=== PATIENT | female | born 1970 | race Caucasian/White ===

== ENCOUNTER 2020-11-20 19:50 | Emergency (ER) | payer BC, SELFPAY ==
--- NOTE | ~2020-11-20 | CT_ITS ---
EXAMINATION: CT ABDOMEN AND PELVIS WITHOUT CONTRAST CLINICAL INFORMATION: Left flank pain with question of stone COMPARISON: Renal ultrasound 12/30/2019 CT abdomen pelvis 12/27/2019 TECHNIQUE: Multidetector volumetric imaging was performed from the superior aspect of the liver through the pubic symphysis. Sagittal and coronal reformatted images were obtained on the technologist's workstation. This CT examination was performed using dose optimization techniques as appropriate, variously including the following: *Automated exposure control *Adjustment of mA and/or kV according to patient size (this includes techniques or standardized protocols for targeted exams where dose is matched to indication/reason for exam; i.e. extremities or head) *Use of iterative reconstruction technique DLP: 690 mGy-cm FINDINGS: LUNG BASES: The visualized lung bases are unremarkable. LIVER, GALLBLADDER, AND BILIARY TREE: The liver is normal in size, shape, and attenuation. No focal hepatic lesion or biliary ductal dilatation is present. Status post cholecystectomy PANCREAS: Unremarkable. SPLEEN: Unremarkable. ADRENAL GLANDS: Unremarkable. KIDNEYS AND URETERS: The kidneys are normal in size, shape, and attenuation. 2 intrarenal nonobstructing calculi are present on the right the largest measuring 3 mm and measuring 500 Hounsfield units. This stone is 11 cm from the posterior axillary line. On the left, there is a tiny 1 to 2 mm punctate calcification in the lower pole. Both ureters appear normal and dilated. No hydronephrosis. No renal masses. No perinephric stranding. BLADDER: Unremarkable. GASTROINTESTINAL TRACT: A small hiatal hernia is present. The small and large bowel are unremarkable. The appendix is unremarkable. ABDOMINAL WALL: No significant hernia is appreciated. LYMPH NODES: Normal. VASCULAR: Unremarkable. PELVIC VISCERA: A retroverted uterus is present. An abnormal adnexal mass is not present. No free fluid is seen. OSSEOUS STRUCTURES: Unremarkable. CT/CT abdomen pelvis wo con IMPRESSION: 1. Bilateral nonobstructing renal calculi, right greater than left. 2. A cause for the patient's left flank pain has not been found
[2020-11-20 20:52] VITALS: BP 117/69; PULSE 90; RESP 18; TEMP 36.4; O2SAT 99; BMI 33.8
--- NOTE | 2020-11-20 21:24 | ED.ABDPAIN ---
HPI - Abdominal Pain General Chief Complaint: Abdominal Pain Stated Complaint: Kidney Stones? Time Seen by Provider: 11/20/20 21:24 Source: patient Mode of arrival: ambulatory Limitations: no limitations History of Present Illness HPI narrative: Patient's history of kidney stone nonobstructive been having pain in the left side of abdomen for last 6 months off and on got worse in last 1 week specially for last 3 days associated with chills and dysuria now no hematuria no fever or chills + nausea, no vomiting or diarrhea no blood in the stool MD elicited complaint: abdominal pain and flank pain Related Data Previous Rx's Medication Instructions Recorded dicyclomine 20 mg tablet 20 mg PO TID #90 tab 06/18/20 escitalopram oxalate 20 mg tablet 30 mg PO DAILY #45 tab 06/18/20 trazodone 50 mg tablet 50 mg PO BEDTIME PRN #20 tab 06/18/20 fluocinonide 0.05 % topical cream 1 appl TOPICAL DAILY 10 Days #30 g 07/10/20 simvastatin 40 mg tablet 40 mg PO BEDTIME #90 tab 11/11/20 cyanocobalamin (vitamin B-12) 1,000 mcg SUBCUT Q4W 28 Days #1 ml 11/17/20 1,000 mcg/mL injection solution levofloxacin 500 mg PO DAILY 5 Days #5 tab 11/20/20 phenazopyridine [Pyridium] 200 mg PO TID PRN 2 Days #5 tab 11/20/20 Allergies Allergy/AdvReac Type Severity Reaction Status Date / Time sulfamethoxazole Allergy Severe PANCREATITI Verified 11/20/20 20:58 [From BACTRIM] S trimethoprim [From BACTRIM] Allergy Severe PANCREATITI Verified 11/20/20 20:58 S Sulfa (Sulfonamide Allergy Unknown may cause Verified 11/20/20 20:58 Antibiotics) pancreatititis Review of Systems Review of Systems Yes all other systems are reviewed and are negative Physical Exam Vital Signs: Vital Signs: Last Vital Signs Temp 97.5 F 11/20/20 20:52 Pulse 79 11/20/20 22:59 Resp 18 11/20/20 22:59 BP 123/70 11/20/20 22:59 Pulse Ox 98 11/20/20 22:59 Body Mass Index 33.8 Appearance: Alert. Oriented X3. No acute distress. Eyes: PERRLA, No Nystagmus ENT: Pharynx normal. Oral Mucosa moist Neck: Normal inspection. Neck supple. CVS: Normal heart rate and rhythm. Pulses normal. Respiratory: No respiratory distress. Equal air entry bilateral, no wheezing/rales/rhonchi Abdomen: Soft and nontender. Bowel sounds are present, no mass palpable, ++L CVA tenderness Skin: Skin warm and dry. Normal skin color. Normal skin turgor. Extremities: No lower extremity edema. No calf tenderness Neuro: Oriented X 3. No motor deficit. No sensory deficit.No cerebellar signs , cranial nerves II-XII intact MDM - Abdominal Pain Medical Records Attestation: I reviewed the patient's medical records. Lab Data Attestation: I reviewed the patient's lab results. Result diagrams: 11/20/20 21:37 11/20/20 21:37 Labs: Lab Results 11/20/20 11/20/20 11/20/20 Range/Units 21:37 21:37 21:37 WBC 12.1 H (4.8-10.8) X10*3/uL RBC 4.64 (4.20-5.50) X10*6/uL Hgb 11.7 L (12.0-16.0) g/dl Hct 35.9 L (37-47) % MCV 77.4 L (80-98) fL MCH 25.2 L (27.0-33.0) pg MCHC 32.6 (31.0-35.0) g/dl RDW 13.4 (11.0-16.0) % Plt Count 296 (160-400) X10*3/uL MPV 10.3 (9.4-12.3) fL Immature Gran % (Auto) 0.3 (0.0-0.4) % Neut % (Auto) 63.8 (45-73) % Lymph % (Auto) 28.9 (20-40) % [place] % (Auto) 5.5 (2-11) % Eos % (Auto) 1.3 (0-4) % Baso % (Auto) 0.2 (0-2) % Lymph # (Auto) 3.5 (1.2-4.9) X10*3/uL [place] # (Auto) 0.7 (0.1-1.2) X10*3/uL Eos # (Auto) 0.2 (0.0-0.4) X10*3/uL Baso # (Auto) 0.0 (0.0-0.2) X10*3/uL Abs Immat Gran (auto) 0.04 H (0.00-0.03) X10*3/uL Absolute Neuts (auto) 7.7 (2.0-8.3) X10*3/uL Absolute Nucleated RBC 0.000 (0.0-0.012) X10*3/uL Nucleated RBC % (auto) 0.0 (0.0-0.2) /100WBC Hold Blue Top SEE NOTE Sodium 138 (135-145) mmol/L Potassium 3.9 (3.3-5.1) mmol/L Chloride 105 (96-108) mmol/L Carbon Dioxide 25 (22-29) mmol/L Anion Gap 12 (12-20) BUN 15 (9-16) mg/dL Creatinine 1.05 (0.5-1.4) mg/dL Estim Creat Clear Calc 62.9 Estimated GFR 55 Random Glucose 109 (60-115) mg/dL Calcium 9.3 (8.4-10.2) mg/dL Urine Color Urine Appearance Urine pH (5.0-8.0) Ur Specific [place] (1.005-1.025) Urine Protein (NEG-TRACE) MG/DL Urine Glucose (UA) (NEG) MG/DL Urine Ketones (NEG) MG/DL Urine Blood (NEG) Urine Nitrite (NEG) Ur Leukocyte Esterase (NEG) Urine RBC (0) /HPF Urine WBC (0-4) /HPF Ur Squamous Epith Cells /LPF Urine Bacteria /LPF Urine Mucus /LPF Urine Test (NEGATIVE) 11/20/20 11/20/20 Range/Units 21:37 21:37 WBC (4.8-10.8) X10*3/uL RBC (4.20-5.50) X10*6/uL Hgb (12.0-16.0) g/dl Hct (37-47) % MCV (80-98) fL MCH (27.0-33.0) pg MCHC (31.0-35.0) g/dl RDW (11.0-16.0) % Plt Count (160-400) X10*3/uL MPV (9.4-12.3) fL Immature Gran % (Auto) (0.0-0.4) % Neut % (Auto) (45-73) % Lymph % (Auto) (20-40) % [place] % (Auto) (2-11) % Eos % (Auto) (0-4) % Baso % (Auto) (0-2) % Lymph # (Auto) (1.2-4.9) X10*3/uL [place] # (Auto) (0.1-1.2) X10*3/uL Eos # (Auto) (0.0-0.4) X10*3/uL Baso # (Auto) (0.0-0.2) X10*3/uL Abs Immat Gran (auto) (0.00-0.03) X10*3/uL Absolute Neuts (auto) (2.0-8.3) X10*3/uL Absolute Nucleated RBC (0.0-0.012) X10*3/uL Nucleated RBC % (auto) (0.0-0.2) /100WBC Hold Blue Top Sodium (135-145) mmol/L Potassium (3.3-5.1) mmol/L Chloride (96-108) mmol/L Carbon Dioxide (22-29) mmol/L Anion Gap (12-20) BUN (9-16) mg/dL Creatinine (0.5-1.4) mg/dL Estim Creat Clear Calc Estimated GFR Random Glucose (60-115) mg/dL Calcium (8.4-10.2) mg/dL Urine Color YELLOW Urine Appearance CLEAR Urine pH 7.0 (5.0-8.0) Ur Specific [place] 1.010 (1.005-1.025) Urine Protein NEG (NEG-TRACE) MG/DL Urine Glucose (UA) NEG (NEG) MG/DL Urine Ketones NEG (NEG) MG/DL Urine Blood 1+ H (NEG) Urine Nitrite NEG (NEG) Ur Leukocyte Esterase NEG (NEG) Urine RBC 1-4 (0) /HPF Urine WBC 5-9 H (0-4) /HPF Ur Squamous Epith Cells 2+ /LPF Urine Bacteria TRACE /LPF Urine Mucus 1+ /LPF Urine Test NEGATIVE (NEGATIVE) Imaging Data CT scan - abdomen: Radiologist's impression: rdering Physician: Vikram Barry MD Date of Service: 11/20/20 Procedure(s): CT abdomen pelvis wo con Accession Number(s): [id number] cc: Vikram Barry MD~ EXAMINATION: CT ABDOMEN AND PELVIS WITHOUT CONTRAST CLINICAL INFORMATION: Left flank pain with question of stone COMPARISON: Renal ultrasound 12/30/2019 CT abdomen pelvis 12/27/2019 TECHNIQUE: Multidetector volumetric imaging was performed from the superior aspect of the liver through the pubic symphysis. Sagittal and coronal reformatted images were obtained on the technologist's workstation. This CT examination was performed using dose optimization techniques as appropriate, variously including the following: *Automated exposure control *Adjustment of mA and/or kV according to patient size (this includes techniques or standardized protocols for targeted exams where dose is matched to indication/reason for exam; i.e. extremities or head) *Use of iterative reconstruction technique DLP: 690 mGy-cm FINDINGS: LUNG BASES: The visualized lung bases are unremarkable. LIVER, GALLBLADDER, AND BILIARY TREE: The liver is normal in size, shape, and attenuation. No focal hepatic lesion or biliary ductal dilatation is present. Status post cholecystectomy PANCREAS: Unremarkable. SPLEEN: Unremarkable. ADRENAL GLANDS: Unremarkable. KIDNEYS AND URETERS: The kidneys are normal in size, shape, and attenuation. 2 intrarenal nonobstructing calculi are present on the right the largest measuring 3 mm and measuring 500 Hounsfield units. This stone is 11 cm from the posterior axillary line. On the left, there is a tiny 1 to 2 mm punctate calcification in the lower pole. Both ureters appear normal and dilated. No hydronephrosis. No renal masses. No perinephric stranding. BLADDER: Unremarkable. GASTROINTESTINAL TRACT: A small hiatal hernia is present. The small and large bowel are unremarkable. The appendix is unremarkable. ABDOMINAL WALL: No significant hernia is appreciated. LYMPH NODES: Normal. VASCULAR: Unremarkable. PELVIC VISCERA: A retroverted uterus is present. An abnormal adnexal mass is not present. No free fluid is seen. OSSEOUS STRUCTURES: Unremarkable. CT/CT abdomen pelvis wo con IMPRESSION: 1. Bilateral nonobstructing renal calculi, right greater than left. 2. A cause for the patient's left flank pain has not been found Discharge Plan Discharge Clinical Impression: UTI (urinary tract infection) Qualifiers: Urinary tract infection type: acute cystitis Hematuria presence: with hematuria Qualified Code(s): N30.01 - Acute cystitis with hematuria Patient Disposition: Home, Self-Care Instructions: Urinary Tract Infection in Women (ED) Additional Instructions: Drink plenty of fluids. Take antibiotic as prescribed. Report to the ER/PCP if not better Prescriptions: New levofloxacin 500 mg tablet 500 mg PO DAILY 5 Days Qty: 5 RF: 0 phenazopyridine [Pyridium] 200 mg tablet 200 mg PO TID PRN (Reason: pain) 2 Days Qty: 5 RF: 0 No Action fluocinonide 0.05 % cream 1 appl topical DAILY 10 Days Qty: 30 RF: 0 simvastatin 40 mg tablet 40 mg PO BEDTIME Qty: 90 RF: 0 cyanocobalamin (vitamin B-12) 1,000 mcg/mL solution 1,000 mcg subcut Q4W 28 Days Qty: 1 RF: 4 escitalopram oxalate 20 mg tablet 30 mg PO DAILY Qty: 45 RF: 1 trazodone 50 mg tablet 50 mg PO BEDTIME PRN (Reason: sleep) Qty: 20 RF: 0 dicyclomine 20 mg tablet 20 mg PO TID Qty: 90 RF: 0 PMFSH Past Medical History Medical History Anxiety disorder Depression with anxiety Dyslipidemia History of iron deficiency anemia Hyperparathyroidism Impaired fasting glucose Irritable bowel syndrome with diarrhea Vitamin B12 deficiency Surgical History No pertinent past surgical history Family History Family History Father Essential hypertension Mother Essential hypertension Social History Social History Alcohol intake: never Smoking Status: Never smoker Use of substances other than those prescribed or required for medical reasons: No Advance Directives: No Advance Directives Information Provided: No Patient : No
[2020-11-20] MEDS: Ketorolac Tromethamine 30 MG/ML VIAL IVPUSH (21:40)
[2020-11-20] MEDS: 0.9 % Sodium Chloride 1,000 ML 999 ML IVCONT (21:41)
[2020-11-20 21:42] LABS: MANUAL DIFF FLAG NO
[2020-11-20 21:48] LABS: Basophils Percent Auto 0.2 % (0-2); Eosinophils Absolute Auto 0.2 X10*3/uL (0.0-0.4); Eosinophils Percent Auto 1.3 % (0-4); Hematocrit 35.9 % (37-47); Hemoglobin 11.7 g/dl (12.0-16.0); Imm Gran Abs Auto 0.04 X10*3/uL (0.00-0.03); Imm Gran Pct Auto 0.3 % (0.0-0.4); Lymphocytes Absolute Auto 3.5 X10*3/uL (1.2-4.9); Lymphocytes Percent Auto 28.9 % (20-40); Mean Corpuscular HGB Conc 32.6 g/dl (31.0-35.0); Mean Corpuscular Hemoglobin 25.2 pg (27.0-33.0); Mean Corpuscular Volume 77.4 fL (80-98); Mean Platelet Volume 10.3 fL (9.4-12.3); Monocytes Absolute Auto 0.7 X10*3/uL (0.1-1.2); Monocytes Percent Auto 5.5 % (2-11); Neutrophils Absolute Auto 7.7 X10*3/uL (2.0-8.3); Neutrophils Percent Auto 63.8 % (45-73); Platelet Count 296 X10*3/uL (160-400); Red Blood Count 4.64 X10*6/uL (4.20-5.50); Red Cell Distribution Width 13.4 % (11.0-16.0); White Blood Count 12.1 X10*3/uL (4.8-10.8)
[2020-11-20 21:49] LABS: Glucose Urine UA NEG (NEG); Leukocyte Esterase Urine NEG (NEG); Nitrite Urine NEG (NEG); Urine Blood 1+ (NEG); Urine Ketones NEG (NEG); Urine Protein NEG (NEG-TRACE)
[2020-11-20 21:50] LABS: Appearance Urine CLEAR; Color Urine YELLOW
[2020-11-20 21:58] LABS: Bacteria Urine TRACE /LPF; Mucus Urine 1+ /LPF; Squamous Epithelial Cell Urine 2+ /LPF
[2020-11-20 21:59] LABS: UPreg QC Valid YES; Urine Pregnancy NEGATIVE (NEGATIVE)
[2020-11-20 22:12] LABS: Anion Gap 12 (12-20); Blood Urea Nitrogen 15 mg/dL (9-16); Calcium 9.3 mg/dL (8.4-10.2); Carbon Dioxide 25 mmol/L (22-29); Chloride 105 mmol/L (96-108); Creatinine Clr Calc Pharmacy 62.9; Estimated Glomerular Filt Rate 55; Glucose Random 109 mg/dL (60-115); Potassium 3.9 mmol/L (3.3-5.1); Sodium 138 mmol/L (135-145)
[2020-11-20 22:59] VITALS: BP 123/70; PULSE 79; RESP 18; O2SAT 98
[2020-11-20] MEDS: Phenazopyridine HCL 200 MG TABLET PO (23:17)
[2020-11-20] MEDS: levoFLOXacin 500 MG TABLET PO (23:17)
== END 2020-11-20 23:23 | disposition home or self-care (01) ==
PROVIDERS: Emergency Provider Internal Medicine; PCP Internal Medicine
DX: N30.01 Acute cystitis with hematuria (principal); N20.0 Calculus of kidney; Z87.442 Personal history of urinary calculi; E78.5 Hyperlipidemia, unspecified; Z79.02 Long term (current) use of antithrombotics/antiplatelets
CPT/HCPCS: 36415; 74176; 80048; 81001; 81025; 85025; 96361; 96374; 99284; 99285; J1885

== ENCOUNTER → 2020-12-24 14:10 | Outpatient (BNVA) | payer BC, SELFPAY | PROVIDERS: PCP Internal Medicine ==

== ENCOUNTER 2021-07-19 05:58 | Inpatient (IN) | payer BC, SELFPAY ==
--- NOTE | ~2021-07-19 | CT_ITS ---
EXAMINATION: CT ABDOMEN AND PELVIS WITH CONTRAST CLINICAL INFORMATION: Mid abdominal pain. COMPARISON: Multiple priors, most recent CT abdomen/pelvis dated 11/20/2020. TECHNIQUE: Multidetector volumetric images were obtained from the superior aspect of the liver through the pubic symphysis following administration 85 mL of Omnipaque 350 intravenous contrast. Sagittal and coronal reformatted images were obtained on the technologist's workstation. Oral contrast: No. This CT examination was performed using dose optimization techniques as appropriate, variously including the following: *Automated exposure control *Adjustment of mA and/or kV according to patient size (this includes techniques or standardized protocols for targeted exams where dose is matched to indication/reason for exam; i.e. extremities or head) *Use of iterative reconstruction technique DLP: 824 mGy-cm FINDINGS: LUNG BASES: The visualized lung bases are unremarkable. LIVER, GALLBLADDER, AND BILIARY TREE: The liver is normal in size, shape, and attenuation. No focal hepatic lesion or biliary ductal dilatation is present. Status post cholecystectomy. PANCREAS: Thickening and mild heterogeneity of the pancreatic parenchyma with prominent adjacent stranding/peripancreatic fluid. Findings are consistent with acute pancreatitis. No pancreatic ductal dilatation or discrete parenchymal lesion. No organized fluid collection or pseudocyst formation. SPLEEN: Unremarkable. The splenic artery and vein are patent. ADRENAL GLANDS: Unremarkable. KIDNEYS AND URETERS: The kidneys are normal in size, shape, and attenuation. Multiple bilateral nonobstructing renal stones are redemonstrated, increased in number when compared to the prior examination. The largest stone is within the lower pole of the right kidney measuring up to 0.7 cm and located 9.5 cm from the posterior axillary line. No ureteral stone. No hydronephrosis or hydroureter. BLADDER: Nondistended and unremarkable. GASTROINTESTINAL TRACT: No small or large bowel obstruction. No bowel wall thickening or associated inflammatory change. Unremarkable appendix. PERITONEAL CAVITY: Stranding/free fluid within the upper abdomen adjacent to the pancreas, as described above. Trace pelvic free fluid. No organized fluid collection/abscess formation. No intra-abdominal free air. ABDOMINAL WALL: No significant hernia is appreciated. LYMPH NODES: Normal. VASCULAR: Unremarkable. PELVIC VISCERA: The uterus and adnexa are unremarkable. OSSEOUS STRUCTURES: Unremarkable. CT/CT abdomen pelvis w con IMPRESSION: 1. Prominent peripancreatic stranding and free fluid, consistent with pancreatitis. The pancreas is slightly enlarged and heterogeneous without ductal dilatation or discrete parenchymal lesion. No evidence of pseudocyst or abscess formation. Trace associated free fluid within the pelvis. 2. Multiple bilateral nonobstructing renal stones, slightly increased in number when compared to the prior examination. No hydronephrosis or hydroureter. Fleischner guidelines were followed.
--- NOTE | ~2021-07-19 | XR_ITS ---
EXAMINATION: XR ABDOMEN KUB CLINICAL INDICATION: Abdominal pain COMPARISON: CT abdomen/pelvis dated 07/19/2021 TECHNIQUE: 2 views of the abdomen. FINDINGS: The bowel gas pattern is normal with no evidence of ileus or obstruction. Moderate stool present within the ascending colon. No unusual soft tissue calcifications are noted. The bones are unremarkable. XR/XR KUB IMPRESSION: Moderate stool within the ascending colon.
--- NOTE | ~2021-07-19 | CT_ITS ---
EXAMINATION: CT ANGIOGRAM OF THE CHEST WITH AND WITHOUT CONTRAST (CT PULMONARY ANGIOGRAM FOR PE) CLINICAL INFORMATION: Reason for Exam positive ddimer; COMPARISON: CT abdomen dated 07/19/2021 TECHNIQUE: Prior to contrast administration, noncontrast localization images were obtained. Subsequently, multidetector volumetric imaging was performed from the thoracic inlet to below the diaphragms following the administration of 65 mL Omnipaque 350 intravenous contrast. No contrast reaction reported Sagittal, coronal, and MIP oblique sagittal reformatted images were obtained on the CT workstation, uploaded to PACS, and reviewed. This CT examination was performed using dose optimization techniques as appropriate, variously including the following: *Automated exposure control *Adjustment of mA and/or kV according to patient size (this includes techniques or standardized protocols for targeted exams where dose is matched to indication/reason for exam; i.e. extremities or head) *Use of iterative reconstruction technique Total exam dose-length product 334 mGy-cm FINDINGS: QUALITY OF STUDY/CONTRAST BOLUS: Satisfactory. PULMONARY ARTERIES: No central or segmental pulmonary emboli. THORACIC AORTA: No aneurysm or dissection. LUNG: Bibasilar subsegmental atelectasis. No evidence of infective consolidation. PLEURA: Trace bilateral pleural effusions. No pneumothorax. MEDIASTINUM: Normal heart size. No pericardial effusion. No hilar or mediastinal lymphadenopathy. No evidence of septal bowing or right heart strain. CHEST WALL/AXILLA: No axillary or internal mammary lymphadenopathy. OSSEOUS STRUCTURES: No acute or suspicious osseous abnormality. UPPER ABDOMEN: Peripancreatic fat stranding compatible with pancreatitis. CT/CT angio chest PE protocol IMPRESSION: No pulmonary embolism. Trace bilateral pleural effusions with accompanying atelectasis. VTE: negative
--- NOTE | 2021-07-19 06:04 | ECG_ITS ---
Test Reason : abdominal pain Blood Pressure : / mmHG Vent. Rate : 083 BPM Atrial Rate : 083 BPM P-R Int : 108 ms QRS Dur : 076 ms QT Int : 402 ms P-R-T Axes : 035 -10 029 degrees QTc Int : 472 ms Sinus rhythm with short WA Minimal voltage criteria for LVH, may be normal variant ( R in aVL ) Borderline ECG No previous ECGs available Referred By: Generic ED Physician Electronically Signed By:COLIN KO
[2021-07-19 06:09] VITALS: BP 196/99; PULSE 90; RESP 22; TEMP 36.6; O2SAT 98; BMI 31.7
[2021-07-19] MEDS: Ondansetron ODT 4 MG TAB.RAPDIS TRANSLINGU (06:38)
[2021-07-19] MEDS: Ketorolac Tromethamine 30 MG/ML VIAL 15 MG IM (06:38)
[2021-07-19 06:40] LABS: Basophils Absolute Auto 0.1 X10*3/uL (0.0-0.2); Basophils Percent Auto 0.2 % (0-2); Eosinophils Absolute Auto 0.3 X10*3/uL (0.0-0.4); Hematocrit 39.5 % (37.0-47.0); Hemoglobin 13.2 g/dl (12.0-16.0); Imm Gran Abs Auto 0.21 X10*3/uL (0.00-0.03); Imm Gran Pct Auto 0.7 % (0.0-0.4); Lymphocytes Absolute Auto 3.1 X10*3/uL (1.2-4.9); Lymphocytes Percent Auto 10.7 % (20-40); MANUAL DIFF FLAG SCAN; Mean Corpuscular HGB Conc 33.4 g/dl (31.0-35.0); Mean Corpuscular Hemoglobin 25.1 pg (27.0-33.0); Mean Corpuscular Volume 75.1 fL (80.0-98.0); Mean Platelet Volume 9.9 fL (9.4-12.3); Monocytes Absolute Auto 1.4 X10*3/uL (0.1-1.2); Monocytes Percent Auto 4.9 % (2-11); Neutrophils Percent Auto 82.5 % (45-73); Platelet Count 351 X10*3/uL (160-400); Red Blood Count 5.26 X10*6/uL (4.20-5.50); Red Cell Distribution Width 14.5 % (11.0-16.0); SCAN SMEAR FLAG 1; White Blood Count 29.1 X10*3/uL (4.8-10.8)
--- NOTE | 2021-07-19 06:43 | PC.NURSE ---
Ekg completed, labs drawn and sent. medicated per Sep. pt complaining of abd pain 04/19 with n/v. Provider and charge nurse aware. pt awaiting room assignment.
[2021-07-19 06:48] LABS: COVID-19 Test Negative (Negative); IDNOW Serial# 9DD0AD1C
[2021-07-19 06:54] LABS: Alanine Aminotransferase 21 U/L (0-31); Albumin Level 4.3 g/dL (3.5-5.0); Alkaline Phosphatase 102 U/L (39-117); Anion Gap 18 (12-20); Aspartate Amino Transferase 17 U/L (5-31); Bilirubin Total 0.5 mg/dL (0.0-1.0); Blood Urea Nitrogen 15 mg/dL (9-16); Calcium 9.7 mg/dL (8.4-10.2); Carbon Dioxide 16 mmol/L (22-29); Chloride 110 mmol/L (96-108); Creatinine Clr Calc Pharmacy 82.1; Estimated Glomerular Filt Rate > 60; Glucose Random 186 mg/dL (60-115); Potassium 3.7 mmol/L (3.3-5.1); Sodium 140 mmol/L (135-145); Total Protein 7.5 g/dL (6.5-8.0)
[2021-07-19 07:02] LABS: SLIDE REVIEW VERIFIED
--- NOTE | 2021-07-19 07:06 | ED.ABDPAIN ---
HPI - Abdominal Pain General Chief Complaint: Abdominal Pain Stated Complaint: vomiting, lower back/stomach pain Time Seen by Provider: 07/19/21 06:33 Source: patient Mode of arrival: ambulatory Limitations: no limitations History of Present Illness HPI narrative: Patient history of kidney stone and pancreatitis secondary to Bactrim use, noticed pain bilateral flank 3 days ago related to the mid abdomen nauseated vomiting today pain got worse. Feels abdomen bloated diaphoretic and in severe pain when he came at this time patient complaining of pain mostly in the middle of the abdomen no hematuria no dysuria no fever or chills Related Data Home Medications Medication Instructions Recorded Confirmed safety needles 25 gauge x 1 #1 ea 12/24/20 escitalopram oxalate 20 mg tablet 20 mg PO DAILY 07/19/21 07/19/21 Previous Rx's Medication Instructions Recorded simvastatin 40 mg tablet 40 mg PO BEDTIME #90 tab 06/10/21 cyanocobalamin (vitamin B-12) 1,000 mcg SUBCUT Q4W 28 Days #1 ml 06/19/21 1,000 mcg/mL injection solution fluocinonide 0.05 % topical cream 1 appl TOPICAL DAILY 10 Days #30 g 06/19/21 syringe with needle, safety 3 mL #50 ea 06/19/21 25 gauge x 1 (BD Integra Syringe) Allergies Allergy/AdvReac Type Severity Reaction Status Date / Time sulfamethoxazole AdvReac Severe PANCREATITI Verified 12/24/20 14:34 [From BACTRIM] S Review of Systems Review of Systems Yes all other systems are reviewed and are negative Physical Exam Vital Signs: Vital Signs: Last Vital Signs Temp 98.2 F 07/19/21 10:33 Pulse 78 07/19/21 10:33 Resp 16 07/19/21 10:33 BP 187/86 H 07/19/21 10:33 Pulse Ox 95 07/19/21 10:33 BMI result Body Mass Index 31.7 Appearance: Alert. Oriented X3. In moderate distress. Eyes: No pallor/ icterus ENT: Pharynx normal. Oral Mucosa moist Neck: Normal inspection. Neck supple. CVS: Normal heart rate and rhythm. Pulses normal. Respiratory: No respiratory distress. Equal air entry bilateral, no wheezing/rales/rhonchi Abdomen: Soft, tenderness in mid abdomen and bilateral flanks no rebound tenderness or guarding, Bowel sounds are present, no mass palpable, Skin: Skin warm and dry. Normal skin color. Normal skin turgor. Extremities: No lower extremity edema. No calf tenderness Neuro: Oriented X 3. No motor deficit. MDM - Abdominal Pain MDM Narrative Medical decision making narrative: Patient's lab shows elevated lipase CT scan showed inflamed pancreas with fluid collections patient does have a history of pancreatitis in the past when she was using Bactrim posterior last year patient is not alcoholic and gallbladder is out etiology at this time is not very clear will admit patient for pain control and IV hydration Medical Records Attestation: I reviewed the patient's medical records. Lab Data Attestation: I reviewed the patient's lab results. Result diagrams: 07/19/21 06:30 07/19/21 06:30 Labs: Lab Results 07/19/21 07/19/21 07/19/21 Range/Units 06:30 06:30 06:30 WBC 29.1 H (4.8-10.8) X10*3/uL RBC 5.26 (4.20-5.50) X10*6/uL Hgb 13.2 (12.0-16.0) g/dl Hct 39.5 (37.0-47.0) % MCV 75.1 L (80.0-98.0) fL MCH 25.1 L (27.0-33.0) pg MCHC 33.4 (31.0-35.0) g/dl RDW 14.5 (11.0-16.0) % Plt Count 351 (160-400) X10*3/uL MPV 9.9 (9.4-12.3) fL Immature Gran % (Auto) 0.7 H (0.0-0.4) % Neut % (Auto) 82.5 H (45-73) % Lymph % (Auto) 10.7 L (20-40) % [place] % (Auto) 4.9 (2-11) % Eos % (Auto) 1.0 (0-4) % Baso % (Auto) 0.2 (0-2) % Lymph # (Auto) 3.1 (1.2-4.9) X10*3/uL [place] # (Auto) 1.4 H (0.1-1.2) X10*3/uL Eos # (Auto) 0.3 (0.0-0.4) X10*3/uL Baso # (Auto) 0.1 (0.0-0.2) X10*3/uL Abs Immat Gran (auto) 0.21 H (0.00-0.03) X10*3/uL Absolute Neuts (auto) 24.0 H (2.0-8.3) x10*3/uL Absolute Nucleated RBC 0.000 (0.0-0.012) X10*3/uL Nucleated RBC % (auto) 0.0 (0.0-0.2) /100WBC Smear Tech's Comments VERIFIED Sodium 140 (135-145) mmol/L Potassium 3.7 (3.3-5.1) mmol/L Chloride 110 H (96-108) mmol/L Carbon Dioxide 16 L (22-29) mmol/L Anion Gap 18 (12-20) BUN 15 (9-16) mg/dL Creatinine 0.74 (0.5-1.4) mg/dL Estim Creat Clear Calc 82.1 Estimated GFR > 60 Random Glucose 186 H (60-115) mg/dL Calcium 9.7 (8.4-10.2) mg/dL Iron 30 (30-160) mcg/dL TIBC 403 (228-428) mcg/dL % Saturation 7 L (15-50) % Unsat Iron Binding 373 ug/dL Total Bilirubin 0.5 (0.0-1.0) mg/dL AST 17 (5-31) U/L ALT 21 (0-31) U/L Alkaline Phosphatase 102 (39-117) U/L Total Protein 7.5 (6.5-8.0) g/dL Albumin 4.3 (3.5-5.0) g/dL Triglycerides 142 mg/dL Cholesterol 188 mg/dL LDL Cholesterol, Calc 122 mg/dl HDL Cholesterol 38 mg/dL Lipase 17785 H (8-78) U/L COVID-19 ([facility]ENJIE) Negative (Negative) COVID-19 Clin Com See Note Imaging Data CT scan - abdomen: Radiologist's impression: CT/CT abdomen pelvis w con IMPRESSION: 1. Prominent peripancreatic stranding and free fluid, consistent with pancreatitis. The pancreas is slightly enlarged and heterogeneous without ductal dilatation or discrete parenchymal lesion. No evidence of pseudocyst or abscess formation. Trace associated free fluid within the pelvis. ? 2. Multiple bilateral nonobstructing renal stones, slightly increased in number when compared to the prior examination. No hydronephrosis or hydroureter.? ? Fleischner guidelines were followed. Discharge Plan Discharge Clinical Impression: Acute pancreatitis Qualifiers: Pancreatitis type: idiopathic Acute pancreatitis complication: no infection or necrosis Qualified Code(s): K85.00 - Idiopathic acute pancreatitis without necrosis or infection Patient Disposition: Admitted As Inpatient [facility] Past Medical History Medical History Anxiety disorder Bilateral nephrolithiasis Depression with anxiety Dyslipidemia History of iron deficiency anemia Hyperparathyroidism Impaired fasting glucose Irritable bowel syndrome with diarrhea Vitamin B12 deficiency Surgical History No pertinent past surgical history Family History Family History Father Essential hypertension Mother Essential hypertension Social History Social History (Updated 07/19/21 @ 09:32 by Moiz Umaña MD) Alcohol intake: never Patient Tobacco Use Status: Never used Tobacco Use of substances other than those prescribed or required for medical reasons: No Advance Directives: No Advance Directives Information Provided: Yes
[2021-07-19] MEDS: HYDROmorphone HCl 1 MG/ML SYRINGE IVPUSH ×2 (07:31→10:08)
[2021-07-19] MEDS: ondansetron HCL 4 MG/2 ML VIAL IVPUSH ×2 (07:31→11:38)
[2021-07-19] MEDS: iohexoL 350 MG/ML 100 ML INFUS..BTL IV (08:21)
[2021-07-19 08:30] LABS: Lipase 22234 U/L (8-78)
[2021-07-19] MEDS: 0.9 % Sodium Chloride 1,000 ML 999 ML IV ×2 (08:46→09:09)
[2021-07-19] MEDS: Piperacillin Sodium/Tazobactam 3.375 GM in 0.9 % Sodium Chloride 50 ML IV (08:46)
[2021-07-19 08:50] VITALS: BP 183/95; PULSE 85; RESP 16; O2SAT 96
--- NOTE | 2021-07-19 08:55 | ECG_ITS ---
Test Reason : back pain Blood Pressure : / mmHG Vent. Rate : 073 BPM Atrial Rate : 073 BPM P-R Int : 132 ms QRS Dur : 080 ms QT Int : 430 ms P-R-T Axes : 050 -15 015 degrees QTc Int : 473 ms Normal sinus rhythm Minimal voltage criteria for LVH, may be normal variant ( R in aVL ) Borderline ECG When compared with ECG of 19-JUL-2021 06:13, No significant change was found Referred By: Vikram Zhang Electronically Signed By:COLIN KO
[2021-07-19] MEDS: Morphine Sulfate 4 MG/ML CARTRIDGE IVPUSH (09:09)
--- NOTE | 2021-07-19 09:23 | P.HPHOSP_ITS ---
History of Present Illness Date of Service: 07/19/21 Chief Complaint: abd pain 51-year-old female with history of recurrent acute pancreatitis presented with abdominal pain. paint is epigastric, radiates to back, 10/10, associated with nausea, vomitting, loss of appetite. started about 3 days ptp, but has become p rogressively worse. initial episode about 4 years ago, attributed to bactrim. she had another episdoe in 2019, underwent prophylactic lap cholecystectomy, she denies ETOH, herbal meds, she is on statin and lexapro. in 2020, TG normal and IgG4 normal. in ED lipase [id number], CT with acute pancreatitis wihtout pseudocyst or necrosis, no cbd dilitatoin, lfts normal. Review of Systems Review of Systems: Constitutional: Denies fever, denies Chills Eyes: denies blurry vision ENT: denies sore throat CVS: denies chest pain Respiratory: Denies dyspnea GI: abdominal pain : denies dysuria MSK: denies neck pain Skin: denies rash Neuro: denies specific motor weakness Psych: denies suicidal ideation Endocrine: denies heat/cold intolerance Hematologic: denies easy bleeding Allergy: denies hives [facility] Medical History Anxiety disorder Bilateral nephrolithiasis Depression with anxiety Dyslipidemia History of iron deficiency anemia Hyperparathyroidism Impaired fasting glucose Irritable bowel syndrome with diarrhea Vitamin B12 deficiency Family History Father Essential hypertension Mother Essential hypertension Surgical History No pertinent past surgical history Social History (Updated 07/19/21 @ 09:32 by Moiz Umaña MD) Alcohol intake: never Patient Tobacco Use Status: Never used Tobacco Use of substances other than those prescribed or required for medical reasons: No Advance Directives: No Advance Directives Information Provided: Yes Meds Allergies Allergy/AdvReac Type Severity Reaction Status Date / Time sulfamethoxazole AdvReac Severe PANCREATITI Verified 12/24/20 14:34 [From BACTRIM] S Active Medications: Current Medications Enoxaparin Sodium (Enoxaparin Sodium 40 Mg/0.4 Ml Syringe) 40 mg SUBCUT Q24H [facility] Hydromorphone HCl (Hydromorphone Hcl 0.5 Mg/0.5 Ml Syringe) 0.5 mg IVPUSH Q2H PRN; Protocol PRN Reason: moderate pain Sodium Chloride (Ns) 1,000 mls @ 999 mls/hr IV .Q1H1M ONE Stop: 07/19/21 09:48 Last Admin: 07/19/21 09:09 Dose: 999 mls/hr Documented by: Lactated Ringer's (Lr) 1,000 mls @ 200 mls/hr IVCONT .Q5H [facility] Pharmacy Consult (Consult Rx Perform Med Rec) 1 each MISCELLANE ONCE PRN PRN Reason: Consult order Sodium Chloride (0.9 % Sodium Chloride Flush 3 Ml Syringe) 3 ml IVFLUSH QSHIFT [facility] Home Medications Medication Instructions Recorded Confirmed Last Taken Type safety needles 25 gauge x 1 #1 ea 12/24/20 Unknown History Physical Exam Vital Signs and Narrative: Vital Signs: Last Vital Signs Temp 97.8 F 07/19/21 06:09 Pulse 85 07/19/21 08:50 Resp 16 07/19/21 08:50 BP 183/95 H 07/19/21 08:50 Pulse Ox 96 07/19/21 08:50 BMI result Body Mass Index 31.7 General: no acute distress HEENT: atraumatic Neck: normal to visual inspection CVS: S1, S2, RRR Resp: CTA bilateral Chest: non tender GI: soft, epigastric tender, non distended : no CVA tenderness Skin: no rashes Extremities: no edema Neuro: Oriented X3, grossly intact Psych: cooperative Results Labs CBC and Chem 7: 07/19/21 06:30 07/19/21 06:30 Labs: Laboratory Results - last 24 hr 07/19/21 07/19/21 07/19/21 06:30 06:30 06:30 MCV 75.1 L MCH 25.1 L MCHC 33.4 RDW 14.5 Plt Count 351 MPV 9.9 Immature Gran % (Auto) 0.7 H Neut % (Auto) 82.5 H Lymph % (Auto) 10.7 L [place] % (Auto) 4.9 Eos % (Auto) 1.0 Baso % (Auto) 0.2 Lymph # (Auto) 3.1 [place] # (Auto) 1.4 H Eos # (Auto) 0.3 Baso # (Auto) 0.1 Abs Immat Gran (auto) 0.21 H Absolute Neuts (auto) 24.0 H Absolute Nucleated RBC 0.000 Nucleated RBC % (auto) 0.0 Smear Tech's Comments VERIFIED Anion Gap 18 Estim Creat Clear Calc 82.1 Estimated GFR > 60 Random Glucose 186 H Calcium 9.7 Total Bilirubin 0.5 AST 17 ALT 21 Alkaline Phosphatase 102 Total Protein 7.5 Albumin 4.3 Lipase 32819 H COVID-19 ([facility]JIE) Negative COVID-19 Clin Com See Note Imaging Radiologist's Impressions: Impressions Abdomen/Pelvis CT 07/19/21 08:21 IMPRESSION: 1. Prominent peripancreatic stranding and free fluid, consistent with pancreatitis. The pancreas is slightly enlarged and heterogeneous without ductal dilatation or discrete parenchymal lesion. No evidence of pseudocyst or abscess formation. Trace associated free fluid within the pelvis. 2. Multiple bilateral nonobstructing renal stones, slightly increased in number when compared to the prior examination. No hydronephrosis or hydroureter. Fleischner guidelines were followed. Assessment and Plan (1) Acute pancreatitis: Qualifiers: Acute pancreatitis complication: no infection or necrosis Pancreatitis type: idiopathic Qualified Code(s): K85.00 - Idiopathic acute pancreatitis without necrosis or infection Status: Acute 51F presented with abdominal pain, found to have recurrent acute pancreatitis recurrent acute pancreatitis etiology unclear hold statin, lexapro recheck TG, igG4 GI eval NPO, IVF, pain meds hld holding statin anxiety holding lexapro dvt prophylaxis - lovenox full code Quality Stroke Does the patient have a stroke diagnosis?: No VTE Prior VTE?: No VTE Risk Level:: Medical - moderate - high VTE Device Contraindication: Treatment Not Indicated VTE Drug Contraindication: N/A - Med Ordered
[2021-07-19 09:30] LABS: Cholesterol 188 mg/dL; HDL Cholesterol 38 mg/dL; LDL Cholesterol Calculated 122 mg/dl; Triglycerides 142 mg/dL
[2021-07-19 09:47] LABS: Iron 30 mcg/dL (30-160); Percent Iron Saturation 7 % (15-50); Total Iron Binding Capacity 403 mcg/dL (228-428); Unsaturated Iron Binding 373 ug/dL
[2021-07-19 10:24] LABS: Lactic Acid 2.3 mmol/L (0.5-2.0)
[2021-07-19] MEDS: Lactated Ringers 1,000 ML 200 ML IVCONT (10:28)
[2021-07-19 10:33] VITALS: BP 187/86; PULSE 78; RESP 16; TEMP 36.8; O2SAT 95
[2021-07-19 12:06] LABS: Reflex Lactate? Lactic Acid Added
[2021-07-19 13:10] LABS: ~Lactic Acid-LAB USE ONLY 3.1 mmol/L (0.5-2.0)
--- NOTE | 2021-07-19 14:01 | PHA.MEDREC ---
Pharmacy Consult ? Medication Reconciliation SPOKE WITH PT DIRECTLY AND REVIEWED MED LIST Pharmacy has completed the medication reconciliation.
[2021-07-19 14:52] LABS: Reflex Lactate? 2 Y
[2021-07-19] MEDS: HYDROmorphone HCl 1 MG/ML SYRINGE 0.5 MG IVPUSH ×4 (15:01→22:23)
--- NOTE | 2021-07-19 15:21 | MHC.CM.PN ---
EMR REVIEWED, PT ADMITTED W/ACUTE PANCREATITIS, CM MET W/PT WHO REPORTS SHE LIVES W/HER , WORKS [employer], HAS NO DME AND NO HOME SERVICES, PT VERIFIES PCP IS BHARATHI BURNHAM, HCP IS [facility] [phone], COPY ON FILE FROM PREVIOUS ADMISSION. D/C PLAN: HOME NO SERVICES, FAMILY FOR TRANSPORT.
--- NOTE | 2021-07-19 15:42 | PC.NURSE ---
pts fluids behind d/t positional iv, first lr bag continuing to infuse.
[2021-07-19 15:50] VITALS: BP 178/98; PULSE 102; RESP 16; TEMP 37.1; O2SAT 95
[2021-07-19 15:58] LABS: ~Lactic Acid-LAB USE ONLY 2.8 mmol/L (0.5-2.0)
[2021-07-19 19:00] VITALS: BP 172/90; PULSE 110; RESP 19; TEMP 36.1; O2SAT 93
[2021-07-19 20:00] VITALS: RESP 20
[2021-07-20] VITALS (8 sets, daily range): BP systolic 136–178; BP diastolic 71–93; PULSE 119–133; RESP 16–20; TEMP 36.4–37; O2SAT 90–93
--- NOTE | 2021-07-20 | ECG_ITS ---
Test Reason : tachy Blood Pressure : / mmHG Vent. Rate : 130 BPM Atrial Rate : 130 BPM P-R Int : 142 ms QRS Dur : 074 ms QT Int : 310 ms P-R-T Axes : 052 -12 033 degrees QTc Int : 456 ms Sinus tachycardia Minimal voltage criteria for LVH, may be normal variant ( R in aVL ) Nonspecific ST and T wave abnormality Abnormal ECG When compared with ECG of 19-JUL-2021 08:55, Vent. rate has increased BY [address] now depressed in Lateral leads Referred By: Vikram Zhang Electronically Signed By:COLIN KO
[2021-07-20] MEDS: HYDROmorphone HCl 1 MG/ML SYRINGE 0.5 MG IVPUSH ×8 (00:32→23:24)
[2021-07-20] MEDS: Lactated Ringers 1,000 ML 200 ML IVCONT ×5 (00:42→23:28)
[2021-07-20] MEDS: ondansetron HCL 4 MG/2 ML VIAL IVPUSH ×2 (01:15→08:58)
[2021-07-20] MEDS: Morphine Sulfate 2 MG/ML CARTRIDGE 1 MG IVPUSH (01:20)
[2021-07-20 01:33] LABS: Appearance Urine HAZY; Color Urine YELLOW; Glucose Urine UA NEG (NEG); Leukocyte Esterase Urine NEG (NEG); Nitrite Urine NEG (NEG); PH 6.5 (5.0-8.0); Specific Gravity - Urine 1.025 (1.005-1.025); UACC Culture Trigger NO; Urine Blood 1+ (NEG); Urine Ketones NEG (NEG); Urine Protein 2+ MG/DL (NEG-TRACE)
[2021-07-20 01:41] LABS: D Dimer High Sensitivity 1720 NG/ML
[2021-07-20 01:44] LABS: Bacteria Urine 1+ /LPF; Granular Casts Urine 0-2 /LPF; Mucus Urine 3+ /LPF; Squamous Epithelial Cell Urine 2+ /LPF
[2021-07-20] MEDS: iohexoL 350 MG/ML 100 ML INFUS..BTL 65 ML IV (03:08)
[2021-07-20] MEDS: Dextrose 5 % and 0.2 % NaCl 1,000 ML 50 ML IVCONT (03:15)
[2021-07-20 05:57] LABS: Hematocrit 43.4 % (37.0-47.0); Hemoglobin 13.8 g/dl (12.0-16.0); Mean Corpuscular HGB Conc 31.8 g/dl (31.0-35.0); Mean Corpuscular Hemoglobin 24.4 pg (27.0-33.0); Mean Corpuscular Volume 76.7 fL (80.0-98.0); Mean Platelet Volume 10.1 fL (9.4-12.3); Platelet Count 350 X10*3/uL (160-400); Red Blood Count 5.66 X10*6/uL (4.20-5.50); Red Cell Distribution Width 14.9 % (11.0-16.0)
[2021-07-20 06:30] LABS: Anion Gap 13 (12-20); Blood Urea Nitrogen 17 mg/dL (9-16); Calcium 9.7 mg/dL (8.4-10.2); Carbon Dioxide 21 mmol/L (22-29); Chloride 109 mmol/L (96-108); Cholesterol 166 mg/dL; Creatinine Clr Calc Pharmacy 75.9; Estimated Glomerular Filt Rate > 60; Glucose Fasting 147 mg/dL (60-99); HDL Cholesterol 36 mg/dL; LDL Cholesterol Calculated 105 mg/dl; Potassium 4.3 mmol/L (3.3-5.1); Sodium 139 mmol/L (135-145); Triglycerides 129 mg/dL
[2021-07-20 06:43] LABS: White Blood Count 31.4 X10*3/uL (4.8-10.8)
[2021-07-20] MEDS: Enoxaparin Sodium 40 MG/0.4 ML SYRINGE SUBCUT (08:45)
[2021-07-20] MEDS: 0.9 % Sodium Chloride Flush 3 ML SYRINGE IVFLUSH (08:56)
--- NOTE | 2021-07-20 10:19 | HO.PM.IMPN ---
Subjective Subjective Date of Service: 07/20/21 Interval History: cc: abd pain interval history: still with significant pain Cardiovascular Cardiovascular: Reports no additional cardiovascular complaints Respiratory Respiratory: Reports no additional respiratory complaints Physical Exam Vital Signs: Vital Signs: Last Vital Signs Temp 97.8 F 07/20/21 07:27 Pulse 120 H 07/20/21 07:27 Resp 16 07/20/21 07:27 BP 137/90 H 07/20/21 07:27 Pulse Ox 93 07/20/21 07:27 BMI result Body Mass Index 31.7 General: AO X 3, no acute distress Resp: CTA bilateral, no accessory muscles used CVS: S1,S2,RRR GI: soft, diffusely tender, non distended Neuro: motor grossly intact, alert Psych: appropriate affect, appropriate insight Objective Data Active Medications Enoxaparin Sodium (Enoxaparin Sodium 40 Mg/0.4 Ml Syringe) 40 mg SUBCUT Q24H [facility] Last Admin: 07/20/21 08:45 Dose: 40 mg Documented by: LENNY Hydromorphone HCl (Hydromorphone Hcl 1 Mg/Ml Syringe) 0.5 mg IVPUSH Q2H PRN; Protocol PRN Reason: moderate pain Last Admin: 07/20/21 08:45 Dose: 0.5 mg Documented by: LENNY Lactated Ringer's (Lr) 1,000 mls @ 200 mls/hr IVCONT .Q5H [facility] Last Admin: 07/20/21 08:45 Dose: 200 mls/hr Documented by: LENNY Ondansetron HCl (Ondansetron Hcl 4 Mg/2 Ml Vial) 4 mg IVPUSH Q8H PRN PRN Reason: nausea/vomiting Last Admin: 07/20/21 08:58 Dose: 4 mg Documented by: LENNY Pharmacy Consult (Consult Rx Perform Med Rec) 1 each MISCELLANE ONCE PRN PRN Reason: Consult order Sodium Chloride (0.9 % Sodium Chloride Flush 3 Ml Syringe) 3 ml IVFLUSH QSHIFT [facility] Last Admin: 07/20/21 08:56 Dose: 3 ml Documented by: LENNY Labs CBC & Chem 7: 07/20/21 05:28 07/20/21 05:28 Labs: Laboratory Results - last 24 hr 01/04/0107/19/21 07/19/21 09:47 12:48 15:37 MCV MCH MCHC RDW Plt Count MPV Absolute Nucleated RBC Nucleated RBC % (auto) D-Dimer High Sensitivty Anion Gap Estim Creat Clear Calc Estimated GFR Fasting Glucose Lactic Acid 2.3 H* Lactic Acid F/U @ 2Hr 3.1 H* Lactic Acid F/U @ 4Hr 2.8 H* Calcium Triglycerides Cholesterol LDL Cholesterol, Calc HDL Cholesterol Urine Color Urine Appearance Urine pH Ur Specific [place] Urine Protein Urine Glucose (UA) Urine Ketones Urine Blood Urine Nitrite Ur Leukocyte Esterase Urine RBC Urine WBC Ur Squamous Epith Cells Urine Bacteria Granular Casts Urine Mucus 07/20/21 07/20/21 07/20/21 01:20 01:24 05:28 MCV 76.7 L MCH 24.4 L MCHC 31.8 RDW 14.9 Plt Count 350 MPV 10.1 Absolute Nucleated RBC 0.000 Nucleated RBC % (auto) 0.0 D-Dimer High Sensitivty 1720 Anion Gap Estim Creat Clear Calc Estimated GFR Fasting Glucose Lactic Acid Lactic Acid F/U @ 2Hr Lactic Acid F/U @ 4Hr Calcium Triglycerides Cholesterol LDL Cholesterol, Calc HDL Cholesterol Urine Color YELLOW Urine Appearance HAZY Urine pH 6.5 Ur Specific [place] 1.025 Urine Protein 2+ H Urine Glucose (UA) NEG Urine Ketones NEG Urine Blood 1+ H Urine Nitrite NEG Ur Leukocyte Esterase NEG Urine RBC 5-9 H Urine WBC 1-4 Ur Squamous Epith Cells 2+ Urine Bacteria 1+ Granular Casts 0-2 Urine Mucus 3+ 07/20/21 05:28 MCV MCH MCHC RDW Plt Count MPV Absolute Nucleated RBC Nucleated RBC % (auto) D-Dimer High Sensitivty Anion Gap 13 Estim Creat Clear Calc 75.9 Estimated GFR > 60 Fasting Glucose 147 H Lactic Acid Lactic Acid F/U @ 2Hr Lactic Acid F/U @ 4Hr Calcium 9.7 Triglycerides 129 Cholesterol 166 LDL Cholesterol, Calc 105 HDL Cholesterol 36 Urine Color Urine Appearance Urine pH Ur Specific [place] Urine Protein Urine Glucose (UA) Urine Ketones Urine Blood Urine Nitrite Ur Leukocyte Esterase Urine RBC Urine WBC Ur Squamous Epith Cells Urine Bacteria Granular Casts Urine Mucus Microbiology Microbiology Results: Microbiology 07/19/21 07:52 Blood Culture - Preliminary Blood - Venous No growth after 24 hours. 07/19/21 07:52 Blood Culture - Preliminary Blood - Venous No growth after 24 hours. Assessment and Plan (1) Acute pancreatitis: Status: Acute Assessment and Plan: 51F presented with abdominal pain, found to have recurrent acute pancreatitis recurrent acute pancreatitis etiology unclear holding statin, lexapro recheck igG4 GI eval NPO, IVF, pain meds hld holding statin anxiety holding lexapro dvt prophylaxis - lovenox full code Quality Stroke Does the patient have a stroke diagnosis?: No VTE Prior VTE?: No VTE Risk Level:: Medical - moderate - high VTE Device Contraindication: Treatment Not Indicated VTE Drug Contraindication: N/A - Med Ordered
--- NOTE | 2021-07-20 11:20 | PM.GICN ---
History of Present Illness Data of Consult Service Date: 07/20/21 Requesting physician: Moiz Umaña Primary Care Provider: Unknown Physician HPI Reason for consult: recurrent pancreatitis 51-year-old female with history of hyperlipidemia, obesity, vitamin B12 deficiency, hyperparathyroidism, anxiety and Kidney stones as well as recurrent acute pancreatitis who I am asked to see for assessment for another episode of pancreatitis She presented with 3 days of 10/10 severity epigastric pain with radiation into the back and associated with nausea and vomtiing with poor appetite. She denies fever or chills, no SOB, or chest pain. She is receiving fluids and morphine which is helping. No new meds or change to meds, no alcohol. CT imaging with acute pancreatitis and labs with lipase 22K. She had at least 2 prior episodes first in 2013 thought to be due to bactrim and another in 2019 after which she got a lap cholecystectomy in case of microlithiasis (path with mild chronic cholecystitis) Review of Systems Review of Systems: Constitutional: Denies fever, denies Chills Eyes: denies blurry vision ENT: denies sore throat CVS: denies chest pain Respiratory: Denies dyspnea GI: abdominal pain : denies dysuria MSK: denies neck pain Skin: denies rash Neuro: denies specific motor weakness Psych: denies suicidal ideation Endocrine: denies heat/cold intolerance Hematologic: denies easy bleeding Allergy: denies hives Yes all other systems are reviewed and are negative Cardiovascular: Cardiovascular: Reports no additional cardiovascular complaints Respiratory: Respiratory: Reports no additional respiratory complaints PMFSH Past Medical History Medical History Anxiety disorder Bilateral nephrolithiasis Depression with anxiety Dyslipidemia History of iron deficiency anemia Hyperparathyroidism Impaired fasting glucose Irritable bowel syndrome with diarrhea Vitamin B12 deficiency Family History Family History Father Essential hypertension Mother Essential hypertension Surgical History Surgical History No pertinent past surgical history Social History Social History (Updated 07/19/21 @ 09:32 by Moiz Umaña MD) Household Members: Spouse Housing: House Do you presently have visiting nurse or other home services: No Alcohol intake: never Patient Tobacco Use Status: Never used Tobacco Use of substances other than those prescribed or required for medical reasons: No Have you been hit, kicked, punched, or otherwise hurt by someone within the past year? If so, by whom?: No Do you feel safe in your current relationship?: Yes Is there a partner from a previous relationship who is making you feel unsafe now?: No Are you made to feel afraid or neglected: No Advance Directives: No Advance Directives Information Provided: Yes Do you have thoughts of harming others: None Do you have a plan to hurt others: No Plan Recently lost weight without trying: No Nutrition Risks: No Nutritional Risk Patient : No : No Poor oral hygiene: No service: No Current occupational status: employed Meds Allergies Allergy/AdvReac Type Severity Reaction Status Date / Time sulfamethoxazole AdvReac Severe PANCREATITI Verified 12/24/20 14:34 [From BACTRIM] S Active Medications: Current Medications Enoxaparin Sodium (Enoxaparin Sodium 40 Mg/0.4 Ml Syringe) 40 mg SUBCUT Q24H [facility] Last Admin: 07/20/21 08:45 Dose: 40 mg Documented by: Hydromorphone HCl (Hydromorphone Hcl 1 Mg/Ml Syringe) 0.5 mg IVPUSH Q2H PRN; Protocol PRN Reason: moderate pain Last Admin: 07/20/21 11:01 Dose: 0.5 mg Documented by: Lactated Ringer's (Lr) 1,000 mls @ 200 mls/hr IVCONT .Q5H [facility] Last Admin: 07/20/21 08:45 Dose: 200 mls/hr Documented by: Ondansetron HCl (Ondansetron Hcl 4 Mg/2 Ml Vial) 4 mg IVPUSH Q8H PRN PRN Reason: nausea/vomiting Last Admin: 07/20/21 08:58 Dose: 4 mg Documented by: Pharmacy Consult (Consult Rx Perform Med Rec) 1 each MISCELLANE ONCE PRN PRN Reason: Consult order Sodium Chloride (0.9 % Sodium Chloride Flush 3 Ml Syringe) 3 ml IVFLUSH QSHIFT [facility] Last Admin: 07/20/21 08:56 Dose: 3 ml Documented by: Home Medications Medication Instructions Recorded Confirmed Last Taken Type safety needles 25 gauge x 1 #1 ea 12/24/20 3 Days Ago History ~07/16/21 escitalopram oxalate 20 mg tablet 20 mg PO DAILY 07/19/21 07/19/21 3 Days Ago History ~07/16/21 Physical Exam Vital Signs: Vital Signs: Last Vital Signs Temp 97.8 F 07/20/21 07:27 Pulse 120 H 07/20/21 07:27 Resp 16 07/20/21 07:27 BP 137/90 H 07/20/21 07:27 Pulse Ox 93 07/20/21 07:27 BMI result Body Mass Index 31.7 EXAM: GENERAL: The patient is well developed and nontoxic, uncomfortable. VITAL SIGNS:see workflow HEENT: Nonicteric sclerae, PERRLA, EOMI. Oropharynx clear. Moist mucous membranes. Conjunctivae appear well perfused. No thyroid mass. CHEST: Chest wall is nontender. HEART: Regular rate and rhythm without murmurs. LUNGS: Clear to auscultation bilaterally. ABDOMEN: Soft, positive bowel sounds, tender epigastrium, no organomegaly.no flank tenderness SKIN: No rash, no excessive bruising, petechiae, or purpura. NEUROLOGIC: Cranial nerves II-XII intact without motor/sensory deficit. psych--nml affect MS: normal Results Labs CBC & Chem 7: 07/20/21 05:28 07/20/21 05:28 Labs: Short CBC 07/20/21 Range/Units 05:28 WBC 31.4 H* (4.8-10.8) X10*3/uL Hgb 13.8 (12.0-16.0) g/dl Hct 43.4 (37.0-47.0) % Plt Count 350 (160-400) X10*3/uL BMP 07/20/21 05:28 Sodium 139 Potassium 4.3 Chloride 109 H Carbon Dioxide 21 L BUN 17 H Creatinine 0.80 Calcium 9.7 Urine 07/20/21 Range/Units 01:20 Urine Color YELLOW Urine Appearance HAZY Urine pH 6.5 (5.0-8.0) Ur Specific [place] 1.025 (1.005-1.025) Urine Protein 2+ H (NEG-TRACE) MG/DL Urine Glucose (UA) NEG (NEG) MG/DL Microbiology Microbiology Results: Microbiology 07/19/21 07:52 Blood - Venous Blood Culture - Preliminary No growth after 24 hours. 07/19/21 07:52 Blood - Venous Blood Culture - Preliminary No growth after [address] scan - abdomen: Attestation: I personally reviewed and interpreted this imaging study as follows: My impression: Inflammed and edematous pancreas with fluid around it Assessment and Plan (1) Acute pancreatitis: Qualifiers: Acute pancreatitis complication: no infection or necrosis Pancreatitis type: idiopathic Qualified Code(s): K85.00 - Idiopathic acute pancreatitis without necrosis or infection Status: Acute 1/ Recurrent pancreatitis, s/p cholecystectomy, no alcohol intake and nml IgG4 level last time. DDX: pancreas divisum, autoimmune pancreatitis, SOD type 1, microlithiasis/sludge, neoplasia, pancreas cyst (not seen on prior MRI). She does have a history of hyperparathyroidism so MEN type 1 is possible, albeit reviewing her last endocrine note 2016 this may have been secondary to low Vit D, looks like she never had this relooked at). Celiac serology was checked in past and negative . BISAP score is 1 right now, mortality significantly increased if >3 PLAN: 1/ Cont with LR, currently seems to have received sub optimal fluids as HGB has remained static, can use LR at 10 ml/kg over 24 hrs 2/ NPO for the moment, but try to start nutrition as soon as tolerated improves outcomes 3/ can use trental 400 mg TID may reduce severity of pancreatitis 4/ longer term- repeat MRI in 6-8 weeks with pancreas protocol, unfortunately secretin is not used here, if neg then can offer her ERCP with sphincterotomy in case of SOD down the line 5/ recheck celiac serorology Procedures Date of Service Date of Service: 07/20/21
[2021-07-20] MEDS: Metoclopramide HCl 10 MG/2 ML VIAL 5 MG IVPUSH (14:08)
[2021-07-20] MEDS: Pentoxifylline ER 400 MG TABLET.ER PO ×2 (14:15→20:45)
--- NOTE | 2021-07-20 21:55 | PC.NURSE ---
P HR elevated in 128-132 range,BP 168/71 sat 93% on RA ,patient comfortable at the time vitals checked I notified E EKG will be done
[2021-07-21 00:33] VITALS: BP 148/70; PULSE 128; RESP 16; TEMP 36.8; O2SAT 96
[2021-07-21] MEDS: HYDROmorphone HCl 1 MG/ML SYRINGE 0.5 MG IVPUSH ×7 (01:18→13:36)
[2021-07-21] MEDS: Lactated Ringers 1,000 ML 200 ML IVCONT ×2 (03:10→11:41)
[2021-07-21 07:11] LABS: Mean Corpuscular HGB Conc 32.3 g/dl (31.0-35.0); Mean Corpuscular Volume 77.3 fL (80.0-98.0); Mean Platelet Volume 10.4 fL (9.4-12.3); Red Blood Count 4.28 X10*6/uL (4.20-5.50); Red Cell Distribution Width 15.1 % (11.0-16.0); White Blood Count 22.3 X10*3/uL (4.8-10.8)
[2021-07-21 07:12] LABS: Hemoglobin 10.7 g/dl (12.0-16.0)
[2021-07-21 07:13] LABS: Hematocrit 33.1 % (37.0-47.0); Platelet Count 214 X10*3/uL (160-400)
[2021-07-21 07:28] LABS: Alanine Aminotransferase 17 U/L (0-31); Albumin Level 3.1 g/dL (3.5-5.0); Alkaline Phosphatase 69 U/L (39-117); Anion Gap 11 (12-20); Aspartate Amino Transferase 30 U/L (5-31); Bilirubin Direct 0.5 mg/dL (0.0-0.5); Bilirubin Total 1.2 mg/dL (0.0-1.0); Blood Urea Nitrogen 11 mg/dL (9-16); Carbon Dioxide 24 mmol/L (22-29); Chloride 106 mmol/L (96-108); Creatinine Clr Calc Pharmacy 92.1; Estimated Glomerular Filt Rate > 60; Glucose Fasting 113 mg/dL (60-99); Potassium 3.8 mmol/L (3.3-5.1); Sodium 137 mmol/L (135-145); Total Protein 5.5 g/dL (6.5-8.0)
[2021-07-21 07:37] VITALS: BP 170/77; PULSE 124; RESP 17; TEMP 36.7; O2SAT 94
[2021-07-21] MEDS: Pentoxifylline ER 400 MG TABLET.ER PO ×3 (07:45→20:36)
[2021-07-21] MEDS: Enoxaparin Sodium 40 MG/0.4 ML SYRINGE SUBCUT (09:40)
[2021-07-21 11:41] VITALS: BP 167/66; PULSE 119; RESP 22; TEMP 36.9; O2SAT 94
--- NOTE | 2021-07-21 11:54 | HO.PM.IMPN ---
Subjective Subjective Date of Service: 07/21/21 Interval History: cc: abd pain interval history: slightly better today, but does not want to try clears yet Cardiovascular Cardiovascular: Reports no additional cardiovascular complaints Respiratory Respiratory: Reports no additional respiratory complaints Physical Exam Vital Signs: Vital Signs: Last Vital Signs Temp 98.5 F 07/21/21 11:41 Pulse 119 H 07/21/21 11:41 Resp 22 H 07/21/21 11:41 BP 167/66 H 07/21/21 11:41 Pulse Ox 94 07/21/21 11:41 BMI result Body Mass Index 31.7 General: AO X 3, no acute distress Resp:? CTA bilateral, no accessory muscles used CVS: S1,S2,RRR GI: soft, diffusely tender, non distended Neuro:? motor grossly intact, alert Psych: appropriate affect, appropriate insight? Objective Data Active Medications Albuterol/Ipratropium (Albuterol/Iprat 2.5/0.5mg 3 Ml Ampul.Neb) 3 ml INHALE RQ4H PRN PRN Reason: sob Enoxaparin Sodium (Enoxaparin Sodium 40 Mg/0.4 Ml Syringe) 40 mg SUBCUT Q24H [facility] Last Admin: 07/21/21 09:40 Dose: 40 mg Documented by: GRACE Hydromorphone HCl (Hydromorphone Hcl 1 Mg/Ml Syringe) 0.5 mg IVPUSH Q2H PRN; Protocol PRN Reason: moderate pain Last Admin: 07/21/21 11:39 Dose: 0.5 mg Documented by: GRACE Lactated Ringer's (Lr) 1,000 mls @ 200 mls/hr IVCONT .Q5H [facility] Last Admin: 07/21/21 11:41 Dose: 200 mls/hr Documented by: GRACE Metoclopramide HCl (Metoclopramide Hcl 10 Mg/2 Ml Vial) 5 mg IVPUSH Q8H PRN PRN Reason: nausea Last Admin: 07/20/21 14:08 Dose: 5 mg Documented by: LENNY Ondansetron HCl (Ondansetron Hcl 4 Mg/2 Ml Vial) 4 mg IVPUSH Q8H PRN PRN Reason: nausea/vomiting Last Admin: 07/20/21 08:58 Dose: 4 mg Documented by: LENNY Pentoxifylline (Pentoxifylline Er 400 Mg Tablet.Er) 400 mg PO TID [facility] Last Admin: 07/21/21 07:45 Dose: 400 mg Documented by: GRACE Pharmacy Consult (Consult Rx Perform Med Rec) 1 each MISCELLANE ONCE PRN PRN Reason: Consult order Sodium Chloride (0.9 % Sodium Chloride Flush 3 Ml Syringe) 3 ml IVFLUSH QSHIFT [facility] Last Admin: 07/21/21 07:45 Dose: Not Given Documented by: GRACE Non-Admin Reason: IV Running Labs CBC & Chem 7: 07/21/21 06:03 07/21/21 06:03 Labs: Laboratory Results - last 24 hr 07/21/21 07/21/21 06:03 06:03 MCV 77.3 L MCH 25.0 L MCHC 32.3 RDW 15.1 Plt Count 214 D MPV 10.4 Absolute Nucleated RBC 0.000 Nucleated RBC % (auto) 0.0 Anion Gap 11 L Estim Creat Clear Calc 92.1 Estimated GFR > 60 Fasting Glucose 113 H Calcium 9.0 D Total Bilirubin 1.2 H Direct Bilirubin 0.5 AST 30 D ALT 17 Alkaline Phosphatase 69 D Total Protein 5.5 L D Albumin 3.1 L D Microbiology Microbiology Results: Microbiology 07/19/21 07:52 Blood Culture - Preliminary Blood - Venous No growth after 48 hours. 07/19/21 07:52 Blood Culture - Preliminary Blood - Venous No growth after 48 hours. Assessment and Plan (1) Acute pancreatitis: Status: Acute Assessment and Plan: 51F presented with abdominal pain, found to have recurrent acute pancreatitis recurrent acute pancreatitis etiology unclear holding statin, lexapro rechecking igG4 GI following pentoxyphylline to reduce inflammation continue NPO, IVF, pain meds hld holding statin anxiety holding lexapro dvt prophylaxis - lovenox full code Quality Stroke Does the patient have a stroke diagnosis?: No VTE Prior VTE?: No VTE Risk Level:: Medical - moderate - high VTE Device Contraindication: Treatment Not Indicated VTE Drug Contraindication: N/A - Med Ordered
[2021-07-21] MEDS: HYDROmorphone HCl 0.5 MG/0.5 ML SYRINGE IVPUSH (13:38)
[2021-07-21 15:05] VITALS: BP 151/55; PULSE 120; RESP 18; TEMP 36.4; O2SAT 94
[2021-07-21 15:40] VITALS: RESP 24
[2021-07-21] MEDS: HYDROmorphone HCl 0.5 MG/0.5 ML SYRINGE 1 MG IVPUSH ×4 (15:40→22:41)
[2021-07-21 19:17] VITALS: BP 169/77; PULSE 125; RESP 18; TEMP 37.2; O2SAT 98
[2021-07-21] MEDS: 0.9 % Sodium Chloride Flush 3 ML SYRINGE IVFLUSH (20:36)
[2021-07-21] MEDS: Lactated Ringers 1,000 ML 125 ML IVCONT (20:38)
[2021-07-21 21:17] LABS: Immunoglobulin G Subclass 1 551 mg/dL (382-929); Immunoglobulin G Subclass 2 187 mg/dL (241-700); Immunoglobulin G Subclass 3 10 mg/dL (22-178); Immunoglobulin G Subclass 4 54.1 mg/dL (4-86); Immunoglobulin G Total 912 mg/dL (600-1640)
[2021-07-22] VITALS (7 sets, daily range): BP systolic 142–164; BP diastolic 63–78; PULSE 84–119; RESP 16–20; TEMP 36.2–37.1; O2SAT 92–95
[2021-07-22] MEDS: HYDROmorphone HCl 0.5 MG/0.5 ML SYRINGE 1 MG IVPUSH ×11 (00:40→22:32)
[2021-07-22] MEDS: Lactated Ringers 1,000 ML 125 ML IVCONT ×3 (04:35→19:08)
[2021-07-22 05:43] LABS: Hematocrit 31.3 % (37.0-47.0); Mean Corpuscular HGB Conc 31.9 g/dl (31.0-35.0); Mean Corpuscular Hemoglobin 24.6 pg (27.0-33.0); Mean Corpuscular Volume 77.1 fL (80.0-98.0); Mean Platelet Volume 10.6 fL (9.4-12.3); Platelet Count 214 X10*3/uL (160-400); Red Blood Count 4.06 X10*6/uL (4.20-5.50); Red Cell Distribution Width 14.6 % (11.0-16.0); White Blood Count 18.8 X10*3/uL (4.8-10.8)
[2021-07-22 06:03] LABS: Alanine Aminotransferase 19 U/L (0-31); Albumin Level 3.2 g/dL (3.5-5.0); Alkaline Phosphatase 77 U/L (39-117); Anion Gap 14 (12-20); Aspartate Amino Transferase 21 U/L (5-31); Bilirubin Direct 0.5 mg/dL (0.0-0.5); Bilirubin Total 1.3 mg/dL (0.0-1.0); Blood Urea Nitrogen 8 mg/dL (9-16); Calcium 9.2 mg/dL (8.4-10.2); Carbon Dioxide 24 mmol/L (22-29); Chloride 104 mmol/L (96-108); Estimated Glomerular Filt Rate > 60; Glucose Fasting 96 mg/dL (60-99); Potassium 3.2 mmol/L (3.3-5.1); Sodium 139 mmol/L (135-145); Total Protein 5.9 g/dL (6.5-8.0)
[2021-07-22] MEDS: Pentoxifylline ER 400 MG TABLET.ER PO ×3 (07:26→20:14)
[2021-07-22] MEDS: Enoxaparin Sodium 40 MG/0.4 ML SYRINGE SUBCUT (07:27)
--- NOTE | 2021-07-22 11:00 | HO.PM.IMPN ---
Subjective Subjective Date of Service: 07/22/21 Interval History: Seen and evaluated this morning Feels little bit better but still having significant amount of pain No reported nausea or vomiting No other overnight events Review of Systems Constitutional: Denies fever, denies Chills Eyes: denies blurry vision ENT: denies sore throat CVS: denies chest pain Respiratory: Denies dyspnea GI: abdominal pain still : denies dysuria MSK: denies neck pain Skin: denies rash Neuro: denies specific motor weakness Physical Exam Vital Signs: Vital Signs: Last Vital Signs Temp 97.5 F 07/22/21 07:52 Pulse 119 H 07/22/21 07:52 Resp 16 07/22/21 07:52 BP 158/70 H 07/22/21 07:52 Pulse Ox 92 07/22/21 07:52 BMI result Body Mass Index 31.7 Const: Other: Constitutional : Alert, oriented, not in distress Neck : Normal inspection, Supple Cardiovascular : RRR, S1 S2, no lower extremity edema Respiratory : Good bilateral air entry, no crackles, wheezes or rhonchi Gastrointestinal: soft, lax, Normal bowel sounds, epigastric tenderness with palpation, no surgical signs. Skin : Warm, Dry Neurological : Alert & oriented x3, No focal deficit Objective Data Active Medications Albuterol/Ipratropium (Albuterol/Iprat 2.5/0.5mg 3 Ml Ampul.Neb) 3 ml INHALE RQ4H PRN PRN Reason: sob Enoxaparin Sodium (Enoxaparin Sodium 40 Mg/0.4 Ml Syringe) 40 mg SUBCUT Q24H [facility] Last Admin: 07/22/21 07:27 Dose: 40 mg Documented by: GRACE Hydromorphone HCl (Hydromorphone Hcl 0.5 Mg/0.5 Ml Syringe) 1 mg IVPUSH Q2H PRN; Protocol PRN Reason: moderate pain Last Admin: 07/22/21 09:34 Dose: 1 mg Documented by: GRACE Lactated Ringer's (Lr) 1,000 mls @ 200 mls/hr IVCONT .Q5H [facility] Last Admin: 07/22/21 04:35 Dose: 125 mls/hr Documented by: [place] Metoclopramide HCl (Metoclopramide Hcl 10 Mg/2 Ml Vial) 5 mg IVPUSH Q8H PRN PRN Reason: nausea Last Admin: 07/20/21 14:08 Dose: 5 mg Documented by: LENNY Ondansetron HCl (Ondansetron Hcl 4 Mg/2 Ml Vial) 4 mg IVPUSH Q8H PRN PRN Reason: nausea/vomiting Last Admin: 07/20/21 08:58 Dose: 4 mg Documented by: LENNY Pentoxifylline (Pentoxifylline Er 400 Mg Tablet.Er) 400 mg PO TID [facility] Last Admin: 07/22/21 07:26 Dose: 400 mg Documented by: GRACE Pharmacy Consult (Consult Rx Perform Med Rec) 1 each MISCELLANE ONCE PRN PRN Reason: Consult order Sodium Chloride (0.9 % Sodium Chloride Flush 3 Ml Syringe) 3 ml IVFLUSH QSHIFT [facility] Last Admin: 07/22/21 07:27 Dose: Not Given Documented by: GRACE Non-Admin Reason: IV Running Labs CBC & Chem 7: 07/22/21 05:16 07/22/21 05:16 Labs: Laboratory Results - last 24 hr 07/20/21 07/22/21 07/22/21 05:28 05:16 05:16 MCV 77.1 L MCH 24.6 L MCHC 31.9 RDW 14.6 Plt Count 214 MPV 10.6 Absolute Nucleated RBC 0.000 Nucleated RBC % (auto) 0.0 Anion Gap 14 Estim Creat Clear Calc 98.0 Estimated GFR > 60 Fasting Glucose 96 Calcium 9.2 Total Bilirubin 1.3 H Direct Bilirubin 0.5 AST 21 ALT 19 Alkaline Phosphatase 77 Total Protein 5.9 L Albumin 3.2 L IgG Total 912 IgG Subclass 1 551 IgG Subclass 2 187 L IgG Subclass 3 10 L IgG Subclass 4 54.1 Microbiology Microbiology Results: Microbiology 07/19/21 07:52 Blood Culture - Preliminary Blood - Venous No growth after 48 hours. 07/19/21 07:52 Blood Culture - Preliminary Blood - Venous No growth after 48 hours. Assessment and Plan (1) Acute pancreatitis: Status: Acute Assessment and Plan: 51F presented with abdominal pain, found to have recurrent acute pancreatitis recurrent acute pancreatitis etiology unclear holding statin, lexapro rechecking igG4, no elevation noted Negative celiac serology Increase IV fluids to 200 cc/hour GI following, use Trental, to repeat MRI in 6-8 weeks as outpatient with pancreatic protocol. pentoxyphylline to reduce inflammation Start clear liquids pain meds hld holding statin anxiety holding lexapro dvt prophylaxis - lovenox full code Quality Stroke Does the patient have a stroke diagnosis?: No VTE Prior VTE?: No VTE Risk Level:: Medical - moderate - high VTE Device Contraindication: Treatment Not Indicated VTE Drug Contraindication: N/A - Med Ordered
--- NOTE | 2021-07-22 13:27 | MHC.CM.PN ---
NURSE GASOLINE TESTER NOTE ELECTRONIC MEDICAL RECORD REVIEWED ALONG WITH CASE DISCUSSED ON MULTIPLE DISCIPLAINRY ROUNDS, PER DOCUMENTATION PATIENT WAS ADMITTED WITH THE DIAGNOSIS OF RECURRENT ACUTE PANCREATITIS PLAN ( CURRENLTY HOLDING SATIN, LEXAPRO, INCREASING IV FLUIDS AND STARTING CLEAR LIQUID DIET , RECHECKING LABS, GASTROENTESTINAL PHYSICIAN FOLLOWING PATIENT . DISCHARGE PLAN - HOME NO SERVICES, ([employer]DEPENDENT , WORKS [employer]IVE) TRANSPORT -FAMILY PCP ONIEL BURNHAM , IS [facility] [phone]
[2021-07-22] MEDS: 0.9 % Sodium Chloride Flush 3 ML SYRINGE IVFLUSH (20:14)
[2021-07-23] MEDS: HYDROmorphone HCl 0.5 MG/0.5 ML SYRINGE 1 MG IVPUSH ×3 (00:46→05:10)
[2021-07-23] MEDS: Lactated Ringers 1,000 ML 125 ML IVCONT (00:46)
[2021-07-23 04:00] VITALS: BP 138/68; PULSE 109; RESP 20; TEMP 36.2; O2SAT 95
[2021-07-23] MEDS: Lactated Ringers 1,000 ML 200 ML IVCONT ×3 (05:13→19:13)
[2021-07-23 06:52] LABS: Anion Gap 13 (12-20); Blood Urea Nitrogen 5 mg/dL (9-16); Calcium 8.9 mg/dL (8.4-10.2); Carbon Dioxide 26 mmol/L (22-29); Chloride 103 mmol/L (96-108); Creatinine Clr Calc Pharmacy 94.9; Estimated Glomerular Filt Rate > 60; Glucose Random 88 mg/dL (60-115); Potassium 2.9 mmol/L (3.3-5.1); Sodium 139 mmol/L (135-145)
[2021-07-23] MEDS: Enoxaparin Sodium 40 MG/0.4 ML SYRINGE SUBCUT (07:38)
[2021-07-23] MEDS: Pentoxifylline ER 400 MG TABLET.ER PO ×3 (07:38→19:13)
[2021-07-23] MEDS: HYDROmorphone HCl 1 MG/ML SYRINGE 0.5 MG IVPUSH ×5 (07:38→23:20)
[2021-07-23 07:52] VITALS: BP 150/70; PULSE 99; RESP 18; TEMP 36.7; O2SAT 95
--- NOTE | 2021-07-23 10:26 | HO.PM.IMPN ---
Subjective Subjective Date of Service: 07/23/21 Interval History: Seen and evaluated this morning Improving overall but still having significant amount of pain Tolerating small amount of clear liquids No reported nausea or vomiting No other overnight events Review of Systems Constitutional: Denies fever, denies Chills Eyes: denies blurry vision ENT: denies sore throat CVS: denies chest pain Respiratory: Denies dyspnea GI: abdominal pain still : denies dysuria MSK: denies neck pain Skin: denies rash Neuro: denies specific motor weakness Physical Exam Vital Signs: Vital Signs: Last Vital Signs Temp 98.0 F 07/23/21 07:52 Pulse 99 07/23/21 07:52 Resp 18 07/23/21 07:52 BP 150/70 H 07/23/21 07:52 Pulse Ox 95 07/23/21 07:52 BMI result Body Mass Index 31.7 Const: Other: Constitutional : Alert, oriented, not in distress Neck : Normal inspection, Supple Cardiovascular : RRR, S1 S2, no lower extremity edema Respiratory : Good bilateral air entry, no crackles, wheezes or rhonchi Gastrointestinal: soft, lax, Normal bowel sounds, epigastric tenderness with palpation, no surgical signs. Skin : Warm, Dry Neurological : Alert & oriented x3, No focal deficit Objective Data Active Medications Albuterol/Ipratropium (Albuterol/Iprat 2.5/0.5mg 3 Ml Ampul.Neb) 3 ml INHALE RQ4H PRN PRN Reason: sob Enoxaparin Sodium (Enoxaparin Sodium 40 Mg/0.4 Ml Syringe) 40 mg SUBCUT Q24H [facility] Last Admin: 07/23/21 07:38 Dose: 40 mg Documented by: GRACE Hydromorphone HCl (Hydromorphone Hcl 1 Mg/Ml Syringe) 0.5 mg IVPUSH Q4H PRN; Protocol PRN Reason: moderate pain Last Admin: 07/23/21 07:38 Dose: 0.5 mg Documented by: GRACE Lactated Ringer's (Lr) 1,000 mls @ 200 mls/hr IVCONT .Q5H [facility] Last Admin: 07/23/21 05:13 Dose: 200 mls/hr Documented by: [place] Metoclopramide HCl (Metoclopramide Hcl 10 Mg/2 Ml Vial) 5 mg IVPUSH Q8H PRN PRN Reason: nausea Last Admin: 07/20/21 14:08 Dose: 5 mg Documented by: LENNY Ondansetron HCl (Ondansetron Hcl 4 Mg/2 Ml Vial) 4 mg IVPUSH Q8H PRN PRN Reason: nausea/vomiting Last Admin: 07/20/21 08:58 Dose: 4 mg Documented by: LENNY Pentoxifylline (Pentoxifylline Er 400 Mg Tablet.Er) 400 mg PO TID [facility] Last Admin: 07/23/21 07:38 Dose: 400 mg Documented by: GRACE Pharmacy Consult (Consult Rx Perform Med Rec) 1 each MISCELLANE ONCE PRN PRN Reason: Consult order Sodium Chloride (0.9 % Sodium Chloride Flush 3 Ml Syringe) 3 ml IVFLUSH QSHIFT [facility] Last Admin: 07/23/21 07:33 Dose: Not Given Documented by: GRACE Non-Admin Reason: IV Running Labs CBC & Chem 7: 07/22/21 05:16 07/23/21 05:23 Labs: Laboratory Results - last 24 hr 07/23/21 05:23 Anion Gap 13 Estim Creat Clear Calc 94.9 Estimated GFR > 60 Random Glucose 88 Calcium 8.9 Assessment and Plan (1) Acute pancreatitis: Status: Acute Assessment and Plan: 51F presented with abdominal pain, found to have recurrent acute pancreatitis recurrent acute pancreatitis etiology unclear holding statin, lexapro Within normal igG4 Negative celiac serology Continue IV fluids 200 cc/hour GI following, use Trental, to repeat MRI in 6-8 weeks as outpatient with pancreatic protocol. pentoxyphylline to reduce inflammation Advanced diet to full liquids pain meds hld holding statin anxiety holding lexapro dvt prophylaxis - lovenox full code Quality Stroke Does the patient have a stroke diagnosis?: No VTE Prior VTE?: No VTE Risk Level:: Medical - moderate - high VTE Device Contraindication: Treatment Not Indicated VTE Drug Contraindication: N/A - Med Ordered
[2021-07-23 12:00] VITALS: BP 166/70; PULSE 104; RESP 17; TEMP 36.9; O2SAT 96
[2021-07-23] MEDS: Potassium Chloride ER 20 MEQ TAB.ER.PRT 40 MEQ PO ×2 (15:10→19:12)
--- NOTE | 2021-07-23 15:37 | MHC.CM.PN ---
PATIENT IS EXPERIENCING HIGH LEVELS OF PAIN. PLAN IS DC TUESDAY WITH NO NEED FOR SERVICES IF IMPROVED.
[2021-07-23 16:00] VITALS: BP 160/68; PULSE 105; RESP 18; TEMP 36.9; O2SAT 91
[2021-07-23 19:18] VITALS: BP 153/74; PULSE 111; RESP 18; TEMP 36.7; O2SAT 92
[2021-07-23] MEDS: diphenhydrAMINE HCL 25 MG TABLET 50 MG PO (23:35)
[2021-07-24] VITALS: BP 174/81; PULSE 87; RESP 17; TEMP 36.9; O2SAT 94
[2021-07-24] MEDS: Lactated Ringers 1,000 ML 200 ML IVCONT ×2 (01:24→06:13)
[2021-07-24] MEDS: HYDROmorphone HCl 1 MG/ML SYRINGE 0.5 MG IVPUSH ×2 (03:28→07:59)
[2021-07-24 03:34] VITALS: BP 161/80; PULSE 88; RESP 17; TEMP 36.7; O2SAT 94
[2021-07-24 06:25] LABS: Hematocrit 28.3 % (37.0-47.0); Hemoglobin 8.9 g/dl (12.0-16.0); Mean Corpuscular HGB Conc 31.4 g/dl (31.0-35.0); Mean Corpuscular Hemoglobin 24.2 pg (27.0-33.0); Mean Corpuscular Volume 76.9 fL (80.0-98.0); Mean Platelet Volume 10.1 fL (9.4-12.3); Platelet Count 239 X10*3/uL (160-400); Red Blood Count 3.68 X10*6/uL (4.20-5.50); Red Cell Distribution Width 14.6 % (11.0-16.0); White Blood Count 17.3 X10*3/uL (4.8-10.8)
[2021-07-24 06:50] LABS: Anion Gap 8 (12-20); Blood Urea Nitrogen 4 mg/dL (9-16); Calcium 8.7 mg/dL (8.4-10.2); Carbon Dioxide 32 mmol/L (22-29); Chloride 101 mmol/L (96-108); Creatinine Clr Calc Pharmacy 99.5; Estimated Glomerular Filt Rate > 60; Glucose Random 124 mg/dL (60-115); Potassium 2.9 mmol/L (3.3-5.1); Sodium 138 mmol/L (135-145)
[2021-07-24] MEDS: Potassium Chloride Packet 20 MEQ PACKET 40 MEQ PO (07:59)
[2021-07-24] MEDS: Pentoxifylline ER 400 MG TABLET.ER PO (07:59)
[2021-07-24] MEDS: Potassium Chloride/H20 10 MEQ/100 ML PIGGYBACK 100 MEQ IV ×2 (07:59→09:55)
[2021-07-24 08:00] VITALS: BP 167/87; PULSE 105; RESP 18; TEMP 37.6; O2SAT 93
[2021-07-24] MEDS: 0.9 % Sodium Chloride Flush 3 ML SYRINGE IVFLUSH (08:00)
--- NOTE | 2021-07-24 09:09 | MHC.CM.PN ---
PLAN IS FOR PATIENT TO RETURN HOME TODAY WITH NO NEED FOR SERVICES. RN AWARE OF PLAN.
[2021-07-24] MEDS: Enoxaparin Sodium 40 MG/0.4 ML SYRINGE SUBCUT (09:57)
--- NOTE | 2021-07-24 10:06 | PM.DS ---
DS: Providers Provider Date of Service: 07/24/21 Date of admission: 07/19/21 09:19 Primary care physician: Unknown Physician Consults: 07/19/21 09:17 Consult to Gastroenterology Routine Consulting Provider: Angel Khan Reason for consultation: acute pancreatitis, recurrent, no clear etiology DS: Diagnosis Discharge Diagnosis (1) Acute pancreatitis: Status: Acute (2) Irritable bowel syndrome with diarrhea: Status: Acute DS: Summary Hospital Course Hospital Course: Admission note 51-year-old female with history of recurrent acute pancreatitis presented with abdominal pain. paint is epigastric, radiates to back, 10/10, associated with nausea, vomitting, loss of appetite. started about 3 days ptp, but has become progressively worse. initial episode about 4 years ago, attributed to bactrim. she had another episdoe in 2019, underwent prophylactic lap cholecystectomy, she denies ETOH, herbal meds, she is on statin and lexapro. in 2019, TG normal and IgG4 normal. in ED lipase [id number], CT with acute pancreatitis wihtout pseudocyst or necrosis, no cbd dilitatoin, lfts normal. Hospital course Patient was admitted for evidence of recurrent pancreatitis on images. Etiology unclear. Statin were held and the patient was checked for IgG for abnormality which came back normal, negative celiac serology. Gastroenterology evaluated the patient and recommended repeating the images in 6-8 weeks for better clarity after the inflammation cause down. Meanwhile she was treated with IV fluid, NPO and bands in diet as tolerated with pain and nausea medication as needed. Plan to discharge home to follow-up with GI as outpatient. to use Zofran and oxycodone as needed. Time Spent with Patient Time attestation: Total time spent providing and/or coordinating discharge services: Discharge coordination time: Greater than 30 minutes Quality: Stroke Does the patient have a stroke diagnosis?: No Physical Exam Vital Signs: Vital Signs: Last Vital Signs Temp 99.6 F 07/24/21 08:00 Pulse 105 H 07/24/21 08:00 Resp 18 07/24/21 08:00 BP 167/87 H 07/24/21 08:00 Pulse Ox 93 07/24/21 08:00 BMI result Body Mass Index 31.7 Const: Other: Constitutional : Alert, oriented, not in distress Neck : Normal inspection, Supple Cardiovascular : RRR, S1 S2, no lower extremity edema Respiratory : Good bilateral air entry, no crackles, wheezes or rhonchi Gastrointestinal: soft, lax, Normal bowel sounds, epigastric tenderness with palpation, no surgical signs. Skin : Warm, Dry Neurological : Alert & oriented x3, No focal deficit DS: Data Data Completed and Pending Labs on day of discharge: Laboratory Results - last 24 hr 07/24/21 07/24/21 06:09 06:09 WBC 17.3 H RBC 3.68 L Hgb 8.9 L Hct 28.3 L MCV 76.9 L MCH 24.2 L MCHC 31.4 RDW 14.6 Plt Count 239 MPV 10.1 Absolute Nucleated RBC 0.000 Nucleated RBC % (auto) 0.0 Sodium 138 Potassium 2.9 L Chloride 101 Carbon Dioxide 32 H Anion Gap 8 L BUN 4 L Creatinine 0.61 Estim Creat Clear Calc 99.5 Estimated GFR > 60 Random Glucose 124 H Calcium 8.[address] scan - chest: Radiologist's impression: ITS Impressions Abdomen/Pelvis CT 07/19/21 08:21 IMPRESSION: 1. Prominent peripancreatic stranding and free fluid, consistent with pancreatitis. The pancreas is slightly enlarged and heterogeneous without ductal dilatation or discrete parenchymal lesion. No evidence of pseudocyst or abscess formation. Trace associated free fluid within the pelvis. 2. Multiple bilateral nonobstructing renal stones, slightly increased in number when compared to the prior examination. No hydronephrosis or hydroureter. Fleischner guidelines were followed. KUB X-Ray 07/20/21 01:55 IMPRESSION: Moderate stool within the ascending colon. Chest CTA 07/20/21 03:05 IMPRESSION: No pulmonary embolism. Trace bilateral pleural effusions with accompanying atelectasis. VTE: negative Discharge Plan Discharge Patient Disposition: Home, Self-Care Discharge Diagnosis: Acute pancreatitis Referrals: Physician,Unknown J [Primary Care Provider] - 1 Week Discharge Medications: New pentoxifylline 400 mg Tablet Extended Release 400 mg PO TID 30 Days Qty: 90 RF: 0 ondansetron HCl 4 mg tablet 4 mg PO Q8H PRN (Reason: nausea and vomiting) Qty: 10 RF: 0 oxycodone 5 mg tablet 2.5 mg PO Q8H PRN (Reason: pain (scale score 7-10)) Qty: 10 RF: 0 Continued simvastatin 40 mg tablet 40 mg PO BEDTIME Qty: 90 RF: 3 cyanocobalamin (vitamin B-12) 1,000 mcg/mL solution 1,000 mcg subcut Q4W 28 Days Qty: 1 RF: 4 fluocinonide 0.05 % cream 1 appl topical DAILY 10 Days Qty: 30 RF: 0 (DME) BD Integra Syringe 3 mL 25 gauge x 1 syringe See Rx Instructions .ROUTE .MEDSUPPLY Qty: 50 RF: 0 escitalopram oxalate 20 mg tablet 20 mg PO DAILY RF: 0 Discharge Orders: Discharge Order (Routine); Ordered 07/24/21 Ordered By: Nathaly Weiss Diet: advance to usual diet and low fat, low cholesterol Activity on Discharge: As tolerated Stand Alone Forms: Patient Portal Discharge page, Work/School Release Care Plan Goals: Read below Health Concerns: Read below Plan of Treatment: Read below Assessment: You were admitted for evaluation of abdominal pain. Found to have pancreatitis. Evaluated by electrician sound who recommended outpatient follow-up for further evaluation and imaging after the inflammation goes down. Advance your diet slowly as tolerated. Discharge Date/Time: 07/24/21 12:13
[2021-07-24 11:52] VITALS: BP 165/74; PULSE 97; RESP 18; TEMP 36.6; O2SAT 94
== END 2021-07-24 12:13 | disposition home or self-care (01) | DRG 282 ==
LOC: HO.ED 09:02 → HO.EDOVER 09:36 → HO.S3 15:46
PROVIDERS: Hospitalist; Student in an Organized Health Care Education/Training Program; Admitting Provider Internal Medicine; Emergency Provider Internal Medicine; Visit Provider Student in an Organized Health Care Education/Training Program
DX: K85.00 Idiopathic acute pancreatitis without necrosis or infection (principal); E53.8 Deficiency of other specified B group vitamins; E78.5 Hyperlipidemia, unspecified; K58.0 Irritable bowel syndrome with diarrhea; F41.9 Anxiety disorder, unspecified; Z20.822 Contact with and (suspected) exposure to COVID-19; E66.9 Obesity, unspecified; Z68.31 Body mass index [BMI] 31.0-31.9, adult; Z87.442 Personal history of urinary calculi; Z88.2 Allergy status to sulfonamides; Z79.899 Other long term (current) drug therapy
CPT/HCPCS: 36415; 71275; 74018; 74177; 80048; 80053; 80061; 80076; 81001; 82784; 83540; 83605; 83690; 85025; 85027; 85379; 87040; 87635; 93005; 99285; J1170; J1650; J1885; J2270; J2405; J2543; J2765; Q0163; Q9967

== ENCOUNTER 2021-08-06 13:17 | Outpatient (REF) | payer BC, SELFPAY ==
[2021-08-06 15:55] LABS: MANUAL DIFF FLAG NO
[2021-08-06 15:59] LABS: Basophils Percent Auto 0.3 % (0-2); Eosinophils Absolute Auto 0.2 X10*3/uL (0.0-0.4); Eosinophils Percent Auto 1.9 % (0-4); Hematocrit 36.6 % (37.0-47.0); Hemoglobin 11.1 g/dl (12.0-16.0); Imm Gran Abs Auto 0.03 X10*3/uL (0.00-0.03); Imm Gran Pct Auto 0.3 % (0.0-0.4); Lymphocytes Absolute Auto 2.2 X10*3/uL (1.2-4.9); Lymphocytes Percent Auto 25.9 % (20-40); Mean Corpuscular HGB Conc 30.3 g/dl (31.0-35.0); Mean Corpuscular Volume 79.2 fL (80.0-98.0); Mean Platelet Volume 10.7 fL (9.4-12.3); Monocytes Absolute Auto 0.5 X10*3/uL (0.1-1.2); Monocytes Percent Auto 5.5 % (2-11); Neutrophils Absolute Auto 5.7 x10*3/uL (2.0-8.3); Neutrophils Percent Auto 66.1 % (45-73); Platelet Count 455 X10*3/uL (160-400); Red Blood Count 4.62 X10*6/uL (4.20-5.50); Red Cell Distribution Width 15.3 % (11.0-16.0); White Blood Count 8.6 X10*3/uL (4.8-10.8)
[2021-08-06 16:20] LABS: Alanine Aminotransferase 15 U/L (0-31); Albumin Level 4.3 g/dL (3.5-5.0); Alkaline Phosphatase 102 U/L (39-117); Anion Gap 12 (12-20); Aspartate Amino Transferase 15 U/L (5-31); Bilirubin Total 0.4 mg/dL (0.0-1.0); Blood Urea Nitrogen 11 mg/dL (9-16); Calcium 9.8 mg/dL (8.4-10.2); Carbon Dioxide 25 mmol/L (22-29); Chloride 106 mmol/L (96-108); Cholesterol 204 mg/dL; Estimated Glomerular Filt Rate > 60; Glucose Fasting 120 mg/dL (60-99); HDL Cholesterol 32 mg/dL; LDL Cholesterol Calculated 112 mg/dl; Lipase 879 U/L (8-78); Potassium 3.6 mmol/L (3.3-5.1); Sodium 139 mmol/L (135-145); Total Protein 8.2 g/dL (6.5-8.0); Triglycerides 303 mg/dL
[2021-08-06 16:27] LABS: Amylase 359 U/L (28-100)
[2021-08-06 16:37] LABS: Vitamin D 25-OH Total 19.8 ng/mL (>30)
[2021-08-06 16:44] LABS: Folate 14.1 ng/mL (> or = 4.0); Vitamin B12 > 2000 pg/mL (200-900)
== END 2021-08-06 13:18 | disposition home or self-care (01) ==
LOC: HO.HMGCLDS 13:17
PROVIDERS: PCP Internal Medicine; Visit Provider Internal Medicine
DX: E78.5 Hyperlipidemia, unspecified (principal); E53.8 Deficiency of other specified B group vitamins; E21.3 Hyperparathyroidism, unspecified; R73.01 Impaired fasting glucose; K85.90 Acute pancreatitis without necrosis or infection, unspecified; Z86.2 Personal history of diseases of the blood and blood-forming organs and certain disorders involving the immune mechanism; Z78.0 Asymptomatic menopausal state
CPT/HCPCS: 36415; 80048; 80053; 80061; 82150; 82306; 82607; 82746; 83690; 85025